=== PATIENT | female | born 1965 | race Caucasian/White ===

== ENCOUNTER 2018-05-17 04:26 | Inpatient (IN) ==
[2018-05-18] MEDS ORDERED: Bisacodyl 10 MG Supp RECTAL PRN (00:01)
[2018-05-18] MEDS ORDERED: Acetaminophen 325 MG Tablet PO PRN (00:01)
[2018-05-18] MEDS ORDERED: Morphine Inj 4 MG/ML Vial IV.PUSH PRN (00:01)
[2018-05-18] MEDS: Metoprolol Tartrate 25 MG Tablet PO SCH ×2 (02:55→08:47)
[2018-05-18] MEDS: Sod Chloride 0.9% Inj 1,000 ML IV.SIG SCH ×2 (02:56→11:10)
[2018-05-18] MEDS: Senna/Docusate Sodium 8.6/50 MG Tablet PO SCH ×2 (02:59→08:47)
[2018-05-18 04:46] LABS: Baso % (Auto) 0.5 % (0.0-2.0); Eos # (Auto) 0.1 th/mm3 (0.0-0.4); Eos % (Auto) 2.3 % (0.0-4.0); Hematocrit 36.1 % (35.0-46.0); Lymph % (Auto) 39.5 % (9.0-44.0); Mean Corpuscular HGB Conc 33.2 % (32.0-36.0); Mean Corpuscular Hemoglobin 29.3 pg (27.0-34.0); Mean Corpuscular Volume 88.3 fL (80.0-100.0); Mono # (Auto) 0.5 th/mm3 (0.0-0.9); Mono % (Auto) 10.2 % (0.0-8.0); Neut # (Auto) 2.4 th/mm3 (1.8-7.7); Neut % (Auto) 47.5 % (16.0-70.0); Platelet Count 212 th/mm3 (150-450); Red Blood Count 4.09 mil/mm3 (4.00-5.30); Red Cell Distribution Width 13.9 % (11.6-17.2); White Blood Count 5.1 th/mm3 (4.0-11.0)
[2018-05-18 05:10] LABS: Alanine Aminotransferase 15 U/L (10-53); Albumin 3.3 g/dL (3.4-5.0); Anion Gap 7 meq/L (5-15); Aspartate Aminotransferase 24 U/L (15-37); Blood Urea Nitrogen 13 mg/dL (7-18); Calcium 8.3 mg/dL (8.5-10.1); Carbon Dioxide 26.8 meq/L (21.0-32.0); Chloride 109 meq/L (98-107); Glomerular Filtration Rate Greater Than 89 mL/min (>89); Glucose,Random 90 mg/dL (74-106); Lipase 187 U/L (73-393); Magnesium 2.1 mg/dL (1.5-2.5); Sodium 143 meq/L (136-145)
[2018-05-18 05:12] LABS: Alkaline Phosphatase 58 U/L (45-117); Total Protein 6.9 g/dL (6.4-8.2)
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
== END 2018-05-18 16:00 | disposition home or self-care (01) ==
LOC: UNDODISIN → PHEDA 06:43 → HCPC 11:10 → UNDODISIN 05-18 14:59
PROVIDERS: ADMIT Internal Medicine; ATTEND Internal Medicine